=== PATIENT | female | born 1985 | race Two or more races ===

== ENCOUNTER 2018-10-30 18:34 | Emergency (ER) | payer SELFPAY ==
[~2018-10-30] VITALS: Ht 162.6 cm; Wt 84.8 kg
[2018-10-30 19:59] LABS: Eosinophils # (auto) 0.3 uL; Mean Corpuscular Volume 81.2 fL (80.0-100.0)
[2018-10-30 20:00] LABS: Basophils # (auto) 0.1 uL; Basophils % (auto) 0.4 % (0.0-2.0); Eosinophils % (auto) 2.2 % (0.0-7.0); Hematocrit 40.6 % (36.0-46.0); Hemoglobin 12.7 g/dL (12.2-16.2); Lymphocytes # (auto) 3.5 uL; Lymphocytes % (auto) 25.5 % (10.0-50.0); Mean Corpuscular Hemoglobin 25.4 pg (28.0-32.0); Mean Corpuscular Hgb Conc. 31.3 g/dL (32.0-36.0); Monocytes % (auto) 7.2 % (0.0-12.0); Neutrophils # (auto) 8.8 uL; Neutrophils % (auto) 64.7 % (37.0-80.0); Nucleated Red Blood Cells % 0.1 %; Platelet Count (auto) 382 10^3/uL (140-450); Red Cell Distribution Width 16.2 % (11.8-14.3); White Blood Cell 13.6 10^3/uL (4.4-10.8)
[2018-10-30 20:10] LABS: Albumin 3.9 g/dL (3.4-5.0); Anion Gap 5 (5-15); Blood Urea Nitrogen 18 mg/dL (7-18); Calcium 8.5 mg/dL (8.5-10.1); Carbon Dioxide 26 mmol/L (21-32); Chloride 110 mmol/L (98-107); Glucose 102 mg/dL (74-106); Potassium 3.7 mmol/L (3.5-5.1); Sodium 141 mmol/L (136-145)
[2018-10-30 20:17] LABS: Alanine Aminotransferase 15 U/L (13-56); Alkaline Phosphatase 95 U/L (45-117); Aspartate Aminotransferase 7 U/L (15-37); BUN/Creatinine Ratio 21.2; Bilirubin, Total 0.2 mg/dL (0.2-1.0); GFR African American > 60 mL/min; GFR Non-African American > 60 mL/min; Total Protein 7.9 g/dL (6.4-8.2)
[2018-10-30 21:42] VITALS: BP 120/79
== END 2018-10-30 21:44 | disposition home or self-care (01) ==
LOC: ER 18:34
DX: R07.89 Other chest pain (principal); F12.10 Cannabis abuse, uncomplicated
CPT/HCPCS: 36415; 71046; 80053; 84484; 85025; 93005; 99284; L0120